=== PATIENT | male | born 1955 | race Two or more races ===

== ENCOUNTER 2022-03-18 22:59 | Emergency (ER) | payer MEDICAID, OTHER ==
[~2022-03-18] VITALS: Ht 167.6 cm; Wt 72.6 kg
--- NOTE | 2022-03-19 00:01 | NUR ---
BIBRA 79 FOR PENILE BLEEDING S/P SELF CATHETERIZTION. DIFFUSE BRIGHT RED BLOOD WITH MILD DISCOMOFORT TO THE GENITALS. PT AWAKE AND ALERT X4 BREATHING UNLABORED.
--- NOTE | 2022-03-19 00:04 | NUR ---
PAGED DR MILLER FOR UROLOGY CONSULT. AWAITING FOR HIS CALL BACK
--- NOTE | 2022-03-19 00:40 | NUR ---
DR NEWELL ON THE PHONE W/ DR MILLER
[2022-03-19 00:43] LABS: BASOPHILS % (AUTO) 0.4 % (0.0-2.0); EOSINOPHILS % (AUTO) 0.4 % (0.0-6.0); HEMATOCRIT 39 % (39-51); LYMPHOCYTES # (AUTO) 0.8 K/uL (0.8-4.8); LYMPHOCYTES % (AUTO) 8.5 % (20.0-44.0); MEAN CORPUSCULAR HGB CONC 33 g/dl (31.0-36.0); MEAN CORPUSCULAR VOLUME 81 fL (80-96); MONOCYTES # (AUTO) 1.1 K/uL (0.1-1.30); NEUTROPHILS # (AUTO) 7.8 K/uL (1.8-8.9); NEUTROPHILS % (AUTO) 79.7 % (43.0-81.0); PLATELET COUNT (AUTO) 87 K/uL (150-450); RED BLOOD CELL COUNT(AUTO) 4.81 MIL/uL (4.5-6.0); WHITE BLOOD COUNT (AUTO) 9.7 K/uL (4.3-11.0)
[2022-03-19] MEDS ORDERED: LIDOCAINE 2% JEL UROJET 10 ML MM ONE (00:54)
[2022-03-19 00:59] LABS: CALCIUM, SERUM 11.2 mg/dL (8.5-10.1); CREATININE 1.5 mg/dL (0.6-1.3)
--- NOTE | 2022-03-19 01:09 | NUR ---
14fr COUDE CATHETER INSERTED PER MD ORDER. NO HEMATURIA OR CLOTS NOTED, URINE YELLOW AND CLOUDY 300ML OUTPUT. SAMPLE COLLECTED AND SENT TO LAB.
[2022-03-19] MEDS ORDERED: POTASSIUM CHLORIDE 20 MEQ TAB.PRT.SR PO ONE ×2 (01:22→01:30)
[2022-03-19] MEDS ORDERED: IV NS 0.9% 1,000 ML IV ONE (01:30)
[2022-03-19 02:21] LABS: BILIRUBIN,URINE NEGATIVE (NEGATIVE); COLOR,URINE YELLOW (YELLOW); LEUKOCYTE ESTERASE ,URINE 3+ (NEGATIVE); PH,URINE 6.5 (5.0-8.0); PROTEIN,URINE 1+ mg/dl (NEGATIVE); UGLUCOSE NEGATIVE (NEGATIVE); UROBILINOGEN,URINE 0.2 EU/dL (0.2)
[2022-03-19 02:40] LABS: BACTERIA,URINE Many /HPF (None Seen); WBC,URINE 21-50 /HPF (0-3)
[2022-03-19 02:41] LABS: RBC,URINE 21-50 /HPF (0-2)
[2022-03-19 02:43] LABS: SQUAMOUS EPITHELIAL CELL,UR Rare /HPF (None Seen)
[2022-03-19 02:44] LABS: NITRITE, URINE POSITIVE (NEGATIVE)
[2022-03-19] MEDS ORDERED: CEFP200T14 PO (02:57)
--- NOTE | 2022-03-19 03:17 | NUR ---
F/C BAG CHANGED TO LEG BAG. PT TOLERATED WELL AND EDUCATED PT.
--- NOTE | 2022-03-19 03:25 | NUR ---
Patient discharged to home in stable condition. Written and verbal after care instructions given. Patient verbalizes understanding of instruction.IV removed. Catheter intact and site benign. Pressure and 4x4 applied to site. No bleeding noted.
[2022-03-19 03:27] VITALS: BP 180/80
== END 2022-03-19 03:27 | disposition home or self-care (01) ==
LOC: ER 23:03
DX: S37.39XA Other injury of urethra, initial encounter (principal); R31.9 Hematuria, unspecified; N39.0 Urinary tract infection, site not specified; E87.6 Hypokalemia; E86.0 Dehydration; Z88.0 Allergy status to penicillin; Z88.8 Allergy status to other drugs, medicaments and biological substances; Z60.2 Problems related to living alone; Z79.899 Other long term (current) drug therapy; X58.XXXA Exposure to other specified factors, initial encounter; Y93.89 Activity, other specified; Y92.89 Other specified places as the place of occurrence of the external cause; Y99.8 Other external cause status
CPT/HCPCS: 99284; 36415; 96360; 51702; 85025; 80048; 87086; 85610; 85730; 81001; 86850; J3490; J7030; A4217